=== PATIENT | female | born 1960 | race Caucasian/White ===

== ENCOUNTER → 2024-08-29 | Day surgery (SDC) | payer OTHER ==
[2024-08-28 15:04] LABS: Absolute Eosinophils 0.1 K/uL (0-0.5); Absolute Lymphocytes (CBC) 2.3 K/uL (0.7-4.9); Absolute Monocytes 0.5 K/uL (0.1-1.3); Absolute Neutrophil 6.3 K/uL (1.8-8.0); Basophils % 0.4 % (0-1.3); Hematocrit 39.1 % (36.0-45.0); Hemoglobin 13.3 g/dL (12.0-15.0); MCH 31.7 pg (27.0-35.0); MCHC 34.1 g/dL (32.0-36.0); MCV 93.1 fL (80-100); MPV 8.8 fL (7.6-11.3); Monocytes % 5.9 % (3.3-12.3); Neutrophils % 67.7 % (41.7-73.7); Nucleated Red Blood Cells % 0.1 % (0-0); Platelets 241 thou/uL (152-406); Red Cell Distribution Width 12.8 % (12.1-15.2)
[2024-08-28 15:15] LABS: Anion Gap 7.9 mEq/L (5.0-15.0); Potassium 3.9 mEq/L (3.5-5.1)
[~2024-08-29] MED LIST: LIDOCAINE 1% MPF 5 ML VIAL ONE; propofoL 200 MG/20 ML VIAL IV ONE
[2024-08-29] MEDS: Ringers Lactate 1,000 ML IV ONE (10:50)
[2024-08-29 12:35] VITALS: O2SAT 100
[2024-08-29 12:48] VITALS: BP 136/79; TEMP 97.7
== END ==
LOC: OR 10:20
PROVIDERS: ATTEND Surgery
PROC: 0DBG8ZX Excision of Left Large Intestine, Via Natural or Artificial Opening Endoscopic, Diagnostic (ICD-10-PCS; 2024-08-29)
PROC: 0DBG8ZX Excision of Left Large Intestine, Via Natural or Artificial Opening Endoscopic, Diagnostic (ICD-10-PCS; principal; 2024-08-29 12:00)
DX: Z12.11 Encounter for screening for malignant neoplasm of colon (principal); K63.5 Polyp of colon; K57.30 Diverticulosis of large intestine without perforation or abscess without bleeding; K64.8 Other hemorrhoids
CPT/HCPCS: 45380 ×2; 85025; 80048; 36415; 88305; J2704 ×2; J2003; J7120